=== PATIENT | male | born 1950 | race Caucasian/White ===

== ENCOUNTER 2020-06-10 20:41 | Emergency (ER) | payer MEDICARE, BC ==
--- NOTE | 2020-06-10 21:17 | EDM.PDOC ---
ED HPI GENERAL MEDICAL PROBLEM - General Stated Complaint: VOMITING AND DIRRHEA Time Seen by Provider: 06/10/20 21:11 Source of Information: Reports: Patient - History of Present Illness INITIAL COMMENTS - FREE TEXT/NARRATIVE: Beau is a 70 y/o male who presents to the ER with nausea and vomiting. He reports feeling fine this AM and he ate breakfast without any problems, then about 1030 he ate some beef jerky and started to feel ill. He got an upset stomach and then had several bouts of vomiting and diarrhea. No fever. He did check his blood sugar about suppertime and it in the 200s. He took his insulin this AM and then had not really eaten much. mid abdomen Pain Score (Numeric/FACES): 5 - Related Data Allergies Allergy/AdvReac Type Severity Reaction Status Date / Time pioglitazone HCl [From Actos] Allergy Rash Verified 06/10/20 21:13 Home Meds: Home Meds Aspirin [Mumtaz Chewable] 81 mg PO DAILY 12/17/13 [History] Brimonidine [Alphagan P 0.15% Ophth Soln] 1 drop EYERT TID 12/17/13 [History] Cholecalciferol (Vitamin D3) [Vitamin D3] 2,000 unit PO DAILY 12/17/13 [History] Dorzolamide HCl/Timolol Maleat [Cosopt Eye Drops] 1 drop EYERT BID 12/17/13 [History] Insulin Glargine,Hum.Rec.Anlog [Lantus Solostar] 60 units SQ BID 12/17/13 [History] Latanoprost [Xalatan] 1 drop EYERT BEDTIME 12/17/13 [History] amLODIPine/Benazepril [Lotrel 5-20 MG] 2 cap PO DAILY 12/17/13 [History] atorvaSTATin [Lipitor] 10 mg PO BEDTIME 12/17/13 [History] hydroCHLOROthiazide [Hydrochlorothiazide] 50 mg PO DAILY 12/17/13 [History] Metoprolol Succinate [Toprol XL] 50 mg PO DAILY 08/30/14 [History] Insulin Aspart [NovoLOG] 0 unit SQ WITHMEALSANDBED 03/20/19 [History] Magnesium Oxide [Magnesium] 800 mg PO BID 03/20/19 [History] Metoprolol Succinate [Toprol XL 100mg] 100 mg PO DAILY 03/20/19 [History] Omeprazole 20 mg PO DAILY 03/20/19 [History] Orphenadrine [Norflex] 100 mg PO BID PRN 03/20/19 [History] Spironolactone [Aldactone] 50 mg PO DAILY 03/20/19 [History] Triamcinolone Acetonide [Triamcinolone Acetonide 0.5%] 15 gm .XX BID PRN 03/20/19 [History] metFORMIN HCl [Glucophage] 1,000 mg PO BID 03/20/19 [History] Past Medical History HEENT History: Reports: Glaucoma, Other (See Below) Other HEENT History: dry eyes. blepharitis. pseudophakia. dry mouth. diabetic retinopathy Cardiovascular History: Reports: High Cholesterol, Hypertension, PVD, Other (See Below) Other Cardiovascular History: carotid cartery stenosis Respiratory History: Reports: Asthma, Sleep Apnea, Other (See Below) Other Respiratory History: lung nodule Gastrointestinal History: Reports: Colon Polyp, GERD, Other (See Below) Other Gastrointestinal History: fatty infiltration of liver. gallbladder calculus without cholecystitis. h pylori Musculoskeletal History: Reports: Back Pain, Chronic, Osteoarthritis, Other (See Below) Other Musculoskeletal History: radiculopathy of leg. 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 dermatitis - Past Surgical History HEENT Surgical History: Reports: Cataract Surgery GI Surgical History: Reports: Colonoscopy Musculoskeletal Surgical History: Reports: Knee Replacement Other Musculoskeletal Surgeries/Procedures:: right ankle pain. neck pain Review of Systems - Review of Systems Review Of Systems: See Below Constitutional: Reports: Diaphoresis Eyes: Reports: No Symptoms Ears: Reports: No Symptoms Nose: Reports: No Symptoms Mouth/Throat: Reports: No Symptoms Respiratory: Reports: No Symptoms Cardiovascular: Reports: No Symptoms GI/Abdominal: Reports: Abdominal Pain, Decreased Appetite, Diarrhea, Nausea, Vo miting Genitourinary: Reports: No Symptoms Musculoskeletal: Reports: No Symptoms Skin: Reports: No Symptoms Neurological: Reports: No Symptoms Psychiatric: Reports: No Symptoms ED EXAM, GENERAL - Physical Exam Exam: See Below General Appearance: Alert, WD/WN, No Apparent Distress (Elderly male, appears to not feel well.) Eye Exam: Bilateral Eye: PERRL Ears: Hearing Grossly Normal Nose: Normal Inspection, Normal Mucosa Throat/Mouth: Normal Inspection, Normal Lips, Normal Teeth, Normal Voice Head: Atraumatic, Normocephalic Neck: Supple Respiratory/Chest: No Respiratory Distress, Lungs Clear, Chest Non-Tender Cardiovascular: Regular Rate, Rhythm GI/Abdominal: Normal Bowel Sounds, Soft, Tender (mild in LUQ), Other (Obesity hinders exam) (Male) Exam: Deferred Rectal (Males) Exam: Deferred Back Exam: Normal Inspection Extremities: Normal Inspection, Normal Range of Motion Neurological: Alert, Oriented, CN II-XII Intact, Normal Cognition, Other (Uses cane.) Psychiatric: Normal Affect #1 Interpretation EKG Date: 06/10/20 Time: 21:59 Rhythm: NSR Rate (Beats/Min): 84 [place]: Normal P-Wave: Present QRS: Normal ST-T: Normal QT: Normal EKG Interpretation Comments: No comparison Course - Vital Signs Text/Narrative:: 2110 The patient was seen by the HORSE TREKKING GUIDE. Labs and EKG ordered. A liter of NS and Zofran 4mg IVP ordered. 2229 Patient reports that he is feeling better. Anxious to go home. 5 Labs reviewed. CBC: WBC=14.2, Ubo=227, Hgb=12.5, Hct=39.5, Neut=81%; CMP Amayel=072, BUN=44, Loom Blower=2.2, Mg=1.7; CRP=1.2. Attempted to look back at previous kidney function tests, but could not access his [place] records. HORSE TREKKING GUIDE discussed labs with patient and advised that he has an elevated WBC with a left shift and would advise further testing with a CT. 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 He declines any further testing or meds and states that he wants to go home. He again states that he feels better after the IV fluids and the Zofran. This patient has elected to leave against medical advice. In my opinion, the patient has capacity to leave AMA. The patient is clinically sober, free from distracting injury, appears to have intact insight and judgment and reason, and in my opinion has capacity to make decisions. I explained to the patient that his symptoms may represent appendicites, diverticulitis, renal insufficiency and the patient verbalized understanding of my concerns. I had a discussion with the patient and his about their workup and results. I informed the patient that the next step in diagnosis and treatment would be a CT of his of his abdomen, and they verbalized understanding of this as well. I explained the risks of leaving without further workup or treatment, which included reasonably foreseeable complications such as , serious injury, permanent disability. I also offered the patient Le[place] to take home, but he declined. The patient is refusing any further care, specifically any diagnostic testing or further meds and is leaving against medical advice. I am unable to convince the patient to stay. I have asked them to return as soon as possible to complete their evaluation, and also explained that they were welcome to return to the ER for further evaluation whenever they choose. I have asked the patient to follow up with their primary doctor as soon as possible. I have answered all their questions. Patient signeddid not sign AMA paperwork. HORSE TREKKING GUIDE advised the patient to see his PCP, Dr Haywood tomorrow in the clinic for repeat labs. 2305 Discharge instructions were reviewed with the patient and his and he left the ER in stable condition. Last Recorded V/S: Last Vital Signs Temp 36.3 C 06/10/20 20:41 Pulse 90 06/10/20 20:41 Resp 16 06/10/20 20:41 BP 91/40 L 06/10/20 20:41 Pulse Ox 95 06/10/20 20:41 - Orders/Labs/Meds Orders: Active Orders 24 hr Category Date Time Status EKG Documentation Completion [RC] STAT Care 06/10/20 21:18 Active UA RFX LESLEY AND CULT IF INDIC [URIN] Routine Lab 06/10/20 22:45 Ordered Sodium Chloride 0.9% [Saline Flush] Med 06/10/20 21:18 Active 10 ml FLUSH ASDIRECTED PRN Saline Lock Insert [OM.PC] Stat Oth 06/10/20 21:18 Ordered Medication Orders Sodium Chloride (Saline Flush) 10 ml FLUSH ASDIRECTED PRN PRN Reason: Keep Vein Open Labs: Laboratory Tests 06/10/20 06/10/2021 Range/Units 21:46 21:46 22:30 WBC 14.2 H (4.0-10.0) x10^3/uL RBC 4.67 (4.5-6.0) x10^6/uL Hgb 12.5 L (14.0-18.0) g/dL Hct 39.5 L (40.0-52.0) % MCV 84.6 (78.0-93.0) fL MCH 26.8 (26.0-32.0) pg MCHC 31.6 L (32.0-36.0) g/dL RDW Coeff of John 15.3 H (10.0-15.0) % Plt Count 301 (130-400) x10^3/uL Add Manual Diff Yes Neutrophils % (Manual) 81 H (50-80) % Band Neutrophils % 3 (0-6) % Lymphocytes % (Manual) 7 L (25-50) % Reactive Lymphs % 2 H (0) % Monocytes % (Manual) 6 (2-11) % Eosinophils % (Manual) 1 (0-4) % Vacuolated Monocytes Rare Platelet Estimate Adequate Hypochromasia 1+ slight H Anisocytosis 1+ slight H Sodium 135 L (136-145) mmol/L Potassium 4.9 (3.5-5.1) mmol/L Chloride 102 (98-107) mmol/L Carbon Dioxide 22 (21-32) mmol/L Anion Gap 15.9 H (5-15) mmol/L BUN 44 H (7-18) mg/dL Creatinine 2.2 H (0.70-1.30) mg/dL Est Cr Clr Drug Dosing 28.38 mL/min Estimated GFR (MDRD) 30 Glucose 337 H (74-106) mg/dL Calcium 8.4 L (8.5-10.1) mg/dL Corrected Calcium 9.20 (8.5-10.1) mg/dL Magnesium 1.7 L (1.8-2.4) mg/dL Total Bilirubin 0.6 (0.2-1.0) mg/dL AST 18 (15-37) U/L ALT 27 (16-63) U/L Alkaline Phosphatase 76 (46-116) U/L Troponin I < 0.017 (<=0.056) ng/mL C-Reactive Protein 1.2 H (<=0.9) mg/dL Total Protein 6.8 (6.4-8.2) g/dL Albumin 3.0 L (3.4-5.0) g/dL Globulin 3.8 g/dL Albumin/Globulin Ratio 0.79 Amylase 19 L (25-115) U/L Lipase 97 (73-393) U/L Urine Color Cancelled Urine Appearance Cancelled Urine pH Cancelled Ur Specific [place] Cancelled Urine Protein Cancelled Urine Glucose (UA) Cancelled Urine Ketones Cancelled Urine Occult Blood Cancelled Urine Nitrite Cancelled Urine Bilirubin Cancelled Urine Urobilinogen Cancelled Ur Leukocyte Esterase Cancelled Meds: Medications Generic Name Dose Route Start Last Admin Trade Name Freq PRN Reason Stop Dose Admin Sodium Chloride 10 ml 06/10/20 21:18 Saline Flush FLUSH ASDIRECTED PRN Keep Vein Open Discontinued Medications Generic Name Dose Route Start Last Admin Trade Name Freq PRN Reason Stop Dose Admin Sodium Chloride 1,000 mls @ 999 mls/hr 06/10/20 21:18 Normal Saline IV 06/10/20 22:18 ONETIME ONE Ondansetron HCl 4 mg 06/10/20 21:18 Zofran IVPUSH 06/10/20 21:19 ONETIME ONE Departure - Departure Time of Disposition: 23:13 Disposition: Against Medical Advice 07 Condition: Good Clinical Impression: Renal insufficiency Nausea & vomiting Qualifiers: Vomiting type: unspecified Vomiting Intractability: intractable Qualified Code(s): R11.2 - Nausea with vomiting, unspecified Diarrhea Qualifiers: Diarrhea type: unspecified type Qualified Code(s): R19.7 - Diarrhea, unspecified Elevated white blood cell count Qualifiers: Leukocytosis type: unspecified Qualified Code(s): D72.829 - Elevated white blood cell count, unspecified - Discharge Information Instructions: Nausea and Vomiting, Adult, Diarrhea, Adult Referrals: Penelope Haywood MD [Primary Care Provider] - Forms: Refusal of Care AMA Additional Instructions: -Follow up with Dr Haywood tomorrow in the AM for recheck and repeat labs -Return to the ER at any time if you wish to return for further diagnostic testing, treatment, or you have any other concerns Sepsis Event Note (ED) - Focused Exam Vital Signs: Vital Signs Temp Pulse Resp BP Pulse Ox 06/10/20 20:41 36.3 C 90 16 91/40 L 95 - My Orders Last 24 Hours: My Active Orders 06/10/20 21:18 EKG Documentation Completion [RC] STAT Sodium Chloride 0.9% [Saline Flush] 10 ml FLUSH ASDIRECTED PRN Saline Lock Insert [OM.PC] Stat 06/10/20 22:45 UA RFX LESLEY AND CULT IF INDIC [URIN] Routine - Assessment/Plan Last 24 Hours: My Active Orders 06/10/20 21:18 EKG Documentation Completion [RC] STAT Sodium Chloride 0.9% [Saline Flush] 10 ml FLUSH ASDIRECTED PRN Saline Lock Insert [OM.PC] Stat 06/10/20 22:45 UA RFX LESLEY AND CULT IF INDIC [URIN] Routine
[2020-06-10] MEDS ORDERED: Sodium Chloride 0.9% 1,000 ML IV ONE (21:18)
[2020-06-10] MEDS ORDERED: Ondansetron 4 MG/2 ML SDV IVPUSH ONE (21:18)
[2020-06-10] MEDS ORDERED: Sodium Chloride 0.9% 10 ML Syringe FLUSH PRN (21:18)
[2020-06-10 22:31] LABS: ANION GAP 15.9 mmol/L (5-15); CHLORIDE,CL 102 mmol/L (98-107); SODIUM,NA 135 mmol/L (136-145)
[2020-06-11 00:40] VITALS: BP 120/45; PULSE 81
== END 2020-06-10 23:33 | disposition left against medical advice (07) ==
LOC: VM.ED 20:41
DX: N28.9 Disorder of kidney and ureter, unspecified (principal); R19.7 Diarrhea, unspecified; D72.829 Elevated white blood cell count, unspecified; E78.00 Pure hypercholesterolemia, unspecified; I10 Essential (primary) hypertension; J45.909 Unspecified asthma, uncomplicated; K21.9 Gastro-esophageal reflux disease without esophagitis; M19.90 Unspecified osteoarthritis, unspecified site; E11.319 Type 2 diabetes mellitus with unspecified diabetic retinopathy without macular edema; E66.9 Obesity, unspecified; Z68.43 Body mass index [BMI] 50.0-59.9, adult; Z88.8 Allergy status to other drugs, medicaments and biological substances; Z79.82 Long term (current) use of aspirin; Z79.4 Long term (current) use of insulin; Z79.899 Other long term (current) drug therapy
CPT/HCPCS: 36415; 80053; 82150; 83690; 83735; 84484; 85025; 86140; 93005; 93010; 96374; 99284; 99284-25; J2405; J7030

== ENCOUNTER 2022-05-24 13:00 | Emergency (ER) | payer MEDICARE, BC ==
[2022-05-24 13:47] LABS: ANION GAP 16.5 mmol/L (5-15); CHLORIDE,CL 101 mmol/L (98-107); ESTIMATED GFR 45 mL/min (>=60); SODIUM,NA 140 mmol/L (136-145)
[2022-05-24 15:09] VITALS: BP 143/54; PULSE 76
== END 2022-05-24 15:16 | disposition home or self-care (01) ==
LOC: VM.ED 13:00
DX: R51.9 Headache, unspecified (principal); E78.00 Pure hypercholesterolemia, unspecified; I10 Essential (primary) hypertension; E11.9 Type 2 diabetes mellitus without complications; K21.9 Gastro-esophageal reflux disease without esophagitis; E66.9 Obesity, unspecified; Z68.30 Body mass index [BMI] 30.0-30.9, adult; Z79.82 Long term (current) use of aspirin; Z79.899 Other long term (current) drug therapy; Z79.4 Long term (current) use of insulin; Z88.8 Allergy status to other drugs, medicaments and biological substances; Z79.84 Long term (current) use of oral hypoglycemic drugs; Z87.891 Personal history of nicotine dependence
CPT/HCPCS: 36415; 70450; 71045; 80053; 82550; 83615; 84484; 85025; 86140; 99283; 99285

== ENCOUNTER 2024-04-26 07:44 | Day surgery (SDC) | payer MEDICARE, BC ==
[~2024-04-26 07:44] MED LIST: Citric Acid/Sodium Citrate Solution 30 ML Cup PO ONE
[2024-04-26] MEDS ORDERED: Citric Acid/Sodium Citrate Solution 30 ML Cup PO ONE (09:00)
[2024-04-26] MEDS ORDERED: fentaNYL 100 MCG/2 ML SDV ONE (09:05)
[2024-04-26] MEDS ORDERED: Propofol 200 MG/20 ML SDV ONE ×2 (09:05)
[2024-04-26] MEDS: Citric Acid/Sodium Citrate Solution 30 ML Cup ONE (09:37)
[2024-04-26] MEDS: Lactated Ringers 1,000 ML IV SCH (09:38)
[2024-04-26 10:29] VITALS: BP 151/63; PULSE 75
== END 2024-04-26 11:25 | disposition home or self-care (01) ==
LOC: VM.SDS 07:44
PROVIDERS: ATTEND Family Medicine
DX: D12.6 Benign neoplasm of colon, unspecified (principal); I10 Essential (primary) hypertension; E11.40 Type 2 diabetes mellitus with diabetic neuropathy, unspecified; E11.51 Type 2 diabetes mellitus with diabetic peripheral angiopathy without gangrene; E11.22 Type 2 diabetes mellitus with diabetic chronic kidney disease; I12.9 Hypertensive chronic kidney disease with stage 1 through stage 4 chronic kidney disease, or unspecified chronic kidney disease; N18.32 Chronic kidney disease, stage 3b; E78.00 Pure hypercholesterolemia, unspecified; K21.9 Gastro-esophageal reflux disease without esophagitis; E66.01 Morbid (severe) obesity due to excess calories; Z68.43 Body mass index [BMI] 50.0-59.9, adult; Z87.891 Personal history of nicotine dependence; Z79.4 Long term (current) use of insulin; Z79.899 Other long term (current) drug therapy
CPT/HCPCS: 00811; 82947; 88305; 99100; A9270-GY; J2704; J3010; J7120

== ENCOUNTER 2024-07-20 01:15 | Emergency (ER) | payer MEDICARE, BC ==
[2024-07-20 01:26] VITALS: BP 143/68; PULSE 76
[2024-07-20] MEDS: Magnesium Hydroxide 400 MG/5 ML Susp 30 ML Cup PO ONE (02:25)
== END 2024-07-20 02:30 | disposition home or self-care (01) ==
LOC: VM.ED 01:15
DX: K59.00 Constipation, unspecified (principal); I12.9 Hypertensive chronic kidney disease with stage 1 through stage 4 chronic kidney disease, or unspecified chronic kidney disease; N18.9 Chronic kidney disease, unspecified; E11.22 Type 2 diabetes mellitus with diabetic chronic kidney disease; I25.10 Atherosclerotic heart disease of native coronary artery without angina pectoris; E78.00 Pure hypercholesterolemia, unspecified; Z79.82 Long term (current) use of aspirin; Z79.899 Other long term (current) drug therapy; Z79.4 Long term (current) use of insulin; Z79.84 Long term (current) use of oral hypoglycemic drugs
CPT/HCPCS: 74018; 99284; A9270-GY

== ENCOUNTER 2024-07-29 20:57 | Emergency (ER) | payer MEDICARE, BC ==
[2024-07-29] MEDS ORDERED: Sodium Chloride 0.9% 10 ML Syringe FLUSH PRN (21:01)
[2024-07-29 21:45] LABS: HEMATOCRIT 33.8 % (40.0-52.0); HEMOGLOBIN 10.7 g/dL (14.0-18.0); MEAN CORPUSCULAR HEMOGLOBIN 26.6 pg (26.0-32.0); MEAN CORPUSCULAR HGB CONC 31.7 g/dL (32.0-36.0); MEAN CORPUSCULAR VOLUME 83.9 fL (78.0-93.0); PLATELET COUNT,PLT 210 x10^3/uL (130-400); RED BLOOD CELL COUNT 4.03 x10^6/uL (4.5-6.0); WHITE BLOOD CELL COUNT,WBC 6.9 x10^3/uL (4.0-10.0)
[2024-07-29] MEDS: Furosemide 100 MG/10 ML SDV IV ONE (22:00)
[2024-07-29 22:12] LABS: BAND PERCENT MAN 5 % (0-6); LYMPHOCYTES ABSOLUTE MAN 0.3 x10^3/uL (1.0-4.8); LYMPHOCYTES PERCENT MAN 5 % (25-50); MONOCYTES ABSOLUTE MAN 0.6 x10^3/uL (0.0-0.8); MONOCYTES PERCENT MAN 9 % (2-11); NEUTROPHILS ABSOLUTE MAN 5.9 x10^3/uL (1.8-7.7); SEG NEUTROPHILS PERCENT MAN 81 % (50-80)
[2024-07-29 22:18] LABS: APPEARANCE,URINE SLIGHTLY CLOUDY (CLEAR); BILIRUBIN,URINE SMALL (NEGATIVE); COLOR,URINE YELLOW (YELLOW); GLUCOSE,URINE NEGATIVE (NEGATIVE); KETONES,URINE TRACE mg/dL (NEGATIVE); LEUKOCYTE ESTERASE,URINE SMALL (NEGATIVE); NITRITE,URINE NEGATIVE (NEGATIVE); OCCULT BLOOD,URINE MODERATE (NEGATIVE); PH,URINE 5.5 (5.0-8.0); PROTEIN,URINE 100 mg/dL (NEGATIVE); UROBILINOGEN,URINE 0.2 EU/dL (0.2)
[2024-07-29 22:22] LABS: A/G RATIO 0.37; ALANINE AMINOTRANSFERASE,ALT 58 U/L (16-63); ALBUMIN 1.9 g/dL (3.4-5.0); ALKALINE PHOSPHATASE 280 U/L (46-116); ASPARTATE AMNIOTRANSFERASE,AST 85 U/L (15-37); BILIRUBIN TOTAL 1.1 mg/dL (0.2-1.0); BLOOD UREA NITROGEN,BUN 43 mg/dL (7-18); C-REACTIVE PROTEIN 19.15 mg/dL (<=0.50); CALCIUM 8.7 mg/dL (8.5-10.1); CARBON DIOXIDE,CO2 24 mmol/L (21-32); CHLORIDE,CL 97 mmol/L (98-107); CREATININE 2.9 mg/dL (0.70-1.30); GLUCOSE RANDOM 179 mg/dL (70-99); PRO B-TYPE NATRIUR PEPT,BNPPRO 2135 pg/mL (<=450); SODIUM,NA 131 mmol/L (136-145)
[2024-07-29 22:28] LABS: BACTERIA,URINE MANY /HPF (NOT SEEN); RBC,URINE 0-5 /HPF (NOT SEEN); SQUAMOUS EPITHELIAL CELLS,UR FEW /HPF (NOT SEEN)
[2024-07-29 22:31] LABS: ESTIMATED GFR 22 mL/min (>=60)
[2024-07-29 22:39] LABS: CREATINE KINASE,CK 613 U/L (39-308)
[2024-07-30 00:32] VITALS: BP 103/49; PULSE 115
== END 2024-07-30 00:14 | disposition short-term general hospital (02) ==
LOC: VM.ED 20:57
DX: J44.1 Chronic obstructive pulmonary disease with (acute) exacerbation (principal); R06.03 Acute respiratory distress; N17.9 Acute kidney failure, unspecified; I12.9 Hypertensive chronic kidney disease with stage 1 through stage 4 chronic kidney disease, or unspecified chronic kidney disease; N18.9 Chronic kidney disease, unspecified; R74.01 Elevation of levels of liver transaminase levels; I25.10 Atherosclerotic heart disease of native coronary artery without angina pectoris; E78.00 Pure hypercholesterolemia, unspecified; K21.9 Gastro-esophageal reflux disease without esophagitis; E11.22 Type 2 diabetes mellitus with diabetic chronic kidney disease; E66.9 Obesity, unspecified; Z79.899 Other long term (current) drug therapy; Z79.4 Long term (current) use of insulin; Z79.84 Long term (current) use of oral hypoglycemic drugs; Z79.82 Long term (current) use of aspirin; Z88.8 Allergy status to other drugs, medicaments and biological substances; Z68.43 Body mass index [BMI] 50.0-59.9, adult
CPT/HCPCS: 36415; 51702; 71045; 80053; 81001; 82550; 83605; 83880; 84484; 85025; 86140; 87040; 87077; 87086; 87088; 87186; 94660; 96374; 99284; 99285; J1940